=== PATIENT | male | born 1950 | race Caucasian/White ===

== ENCOUNTER → 2019-05-15 09:25 | Outpatient (CLI) | payer MEDICARE, OTHER, SELFPAY ==
--- NOTE | 2019-05-15 09:29 | US_ITS ---
US abdomen complete HISTORY: ITS.REASON: RUQ PAIN ORDERING PHYSICIAN: Rivera Rodriguez PATIENT AGE: 68 years COMPARISON: None FINDINGS: PANCREAS:Unremarkable. No obvious mass or abnormal fluid collection. No ductal dilatation LIVER:No focal liver lesions demonstrated. Homogeneous echogenicity. No intrahepatic biliary ductal dilatation evident. There is appropriate direction of blood flow within a nondilated portal vein RIGHT KIDNEY:Unremarkable. Normal size and echogenicity. No hydronephrosis LEFT KIDNEY:Unremarkable. No hydronephrosis. Normal size and echogenicity. GALLBLADDER:No gallstones, gallbladder wall thickening, pericholecystic fluid, or biliary dilatation. AORTA:No evidence of aneurysmal dilatation. Mild atheromatous changes are present within the aorta SPLEEN:Unremarkable. Normal size and echogenicity ASCITES:None demonstrated. IMPRESSION: Unremarkable abdominal ultrasound, no acute findings
--- NOTE | 2019-05-15 09:30 | XR_ITS ---
XR chest 2V HISTORY: ITS.REASON: RT SHOULDER PAIN,RUQ ABD PAIN ORDERING PHYSICIAN: Rivera Rodriguez PATIENT AGE: 68 years COMPARISON: FINDINGS: Unremarkable cardiovascular structures. Lungs are clear of acute infiltrate. There is some mild left apical pleural thickening with mild left apical pleural calcification. There are degenerative changes in the shoulders and spine with mild lower thoracic curvature convex right. IMPRESSION: No acute finding. Calcified pleural plaque in the left apex..
== END ==
PROVIDERS: PCP Internal Medicine; Visit Provider Internal Medicine
DX: R10.11 Right upper quadrant pain (principal); M25.511 Pain in right shoulder
CPT/HCPCS: 71046; 76700

== ENCOUNTER → 2019-09-24 13:24 | Outpatient (POV) | payer MEDICARE, OTHER, SELFPAY | PROVIDERS: Visit Provider Dermatology | DX: Z00.00 Encounter for general adult medical examination without abnormal findings (principal) ==

== ENCOUNTER → 2021-08-04 10:02 | Outpatient (CLI) | payer MEDICARE, OTHER, SELFPAY | PROVIDERS: PCP Internal Medicine; Visit Provider Internal Medicine | DX: Z20.822 Contact with and (suspected) exposure to COVID-19 (principal) | CPT/HCPCS: C9803; U0003; U0005 ==

== ENCOUNTER → 2021-11-30 08:57 | Outpatient (POV) | payer MEDICARE, OTHER, SELFPAY | PROVIDERS: Visit Provider Dermatology | DX: Z00.00 Encounter for general adult medical examination without abnormal findings (principal) ==